=== PATIENT | female | born 1950 | race Caucasian/White ===

== ENCOUNTER 2020-05-15 22:02 | Emergency (ER) | payer MEDICARE, OTHER ==
[~2020-05-15] VITALS: Ht 165.1 cm; Wt 81.6 kg
[~2020-05-15 22:02] MED LIST: AMBIEN10 MG PO; ARMOUR THYROID120 MG PO; ESTRADIOL1 MG PO; OMEPRAZOLE40 MG PO; PREGNENOLONE; PROGESTERONE200 MG PO; TESTOSTERONE5 GM
[2020-05-15 22:32] LABS: ALANINE AMINOTRANSFERASE 8 IU/L (0-55); ALBUMIN/GLOBULIN RATIO 0.7 (0.8-2.0); ALKALINE PHOSPHATASE 125 IU/L (40-150); ANION GAP 15.4 mmol/L (8-16); BLOOD UREA NITROGEN 14 mg/dL (7-26); BUN/CREATININE RATIO 19 (6-25); CALCIUM 8.4 mg/dL (8.4-10.2); CARBON DIOXIDE 21 mmol/L (22-29); CHLORIDE 105 mmol/L (98-107); CREATININE, SERUM 0.72 mg/dL (0.57-1.11); EST GLOMERULAR FILTRATION RATE > 60 ML/MIN (60-); GLUCOSE 113 mg/dL (74-118); POTASSIUM 3.4 mmol/L (3.5-5.1); SODIUM 138 mmol/L (136-145)
[2020-05-15 22:35] LABS: BASOPHILS # (AUTO) 0.1 (0.0-0.1); BASOPHILS % 0.5 % (0.0-1.0); EOSINOPHILS # (AUTO) 0.1 (0.0-0.4); EOSINOPHILS % 0.5 % (0.0-6.0); HEMATOCRIT 36.8 % (34.2-44.1); HEMOGLOBIN 11.8 g/dL (12.0-16.0); LYMPHOCYTES % 11.5 % (18.0-39.1); MEAN CORPUSCULAR HEMOGLOBIN 30.1 pg (28-32); MEAN CORPUSCULAR HGB CONC 32.1 g/dL (31-35); MEAN CORPUSCULAR VOLUME 93.9 fL (81-99); MONOCYTES # (AUTO) 1.1 (0.2-0.8); MONOCYTES % 6.2 % (4.4-11.3); NEUTROPHILS # (AUTO) 13.5 (2.1-6.9); NEUTROPHILS % 79.8 % (38.7-80.0); PLATELET COUNT 230 x10e3/uL (140-360); RED BLOOD COUNT 3.92 x10e6/uL (3.6-5.1); RED CELL DISTRIBUTION WIDTH 13.7 % (11.7-14.4)
[2020-05-15] MEDS ORDERED: IOPAMIDOL 370 MG/ML 200 ML INFUS..BTL INJ ONE (23:23)
[2020-05-15] MEDS ORDERED: SODIUM CHLORIDE 0.9% 50ML 50 ML ONE (23:23)
[2020-05-16] MEDS ORDERED: HEPARIN SOD (PORCINE) 5,000 UNIT/ML VIAL IV ONE (00:15)
[2020-05-16] MEDS ORDERED: HEPARIN 25,000 UNIT 1,200 UNIT in DEXTROSE 5% 250ML 250 ML IV SCH (00:15)
[2020-05-16] MEDS ORDERED: MORPHINE SULFATE INJ 2 MG/ML SYR IV PRN (00:30)
[2020-05-16] MEDS ORDERED: HEPARIN 25,000 UNIT DRIP IV ONE (00:38)
[2020-05-16] MEDS ORDERED: HEPARIN SOD (PORCINE) 1000 UNIT/ML SDV IV ONE (00:45)
[2020-05-16] MEDS ORDERED: CEFTRIAXONE SOD 1 GM/NS 50 ML 50 ML IV ONE (00:45)
[2020-05-16] MEDS: HEPARIN 25,000 UNIT/D5W 250ML 250 ML IV SCH ×2 (01:04→14:58)
[2020-05-16] MEDS ORDERED: ZOLPIDEM TARTRATE 10 MG TAB PO PRN (04:30)
[2020-05-16] MEDS ORDERED: CEFEPIME 1GM/NS 0.9% 50 ML 50 ML IV SCH (04:30)
[2020-05-16] MEDS: MORPHINE SULFATE INJ 2 MG/ML SYR IV PRN ×3 (06:03→11:54)
[2020-05-16] MEDS: ONDANSETRON HCL INJ 2MG/ML 2ML 2 MG/ML VIAL IV PRN ×2 (06:03→12:30)
[2020-05-16] MEDS ORDERED: CELECOXIB 100 MG CAP PO SCH (08:45)
[2020-05-16] MEDS ORDERED: PANTOPRAZOLE SOD 40 MG TABEC PO SCH (09:00)
[2020-05-16] MEDS ORDERED: PROMETHAZINE 12.5MG/ NACL 0.9% 12.5 MG/50 ML BAG IV ONE (13:30)
[2020-05-16] MEDS ORDERED: MELATONIN 5 MG TABLET PO SCH (21:00)
== END 2020-05-16 16:19 | disposition home or self-care (01) ==
LOC: ER 22:09 → UNDOADMIN 05-16 01:40 → ERHOLD 05-16 01:40
DX: I26.99 Other pulmonary embolism without acute cor pulmonale (principal); I82.412 Acute embolism and thrombosis of left femoral vein; I82.431 Acute embolism and thrombosis of right popliteal vein; I82.432 Acute embolism and thrombosis of left popliteal vein; I82.441 Acute embolism and thrombosis of right tibial vein; I82.442 Acute embolism and thrombosis of left tibial vein; I10 Essential (primary) hypertension; F41.9 Anxiety disorder, unspecified; K21.9 Gastro-esophageal reflux disease without esophagitis; Z11.52 Encounter for screening for COVID-19; I25.2 Old myocardial infarction; Z95.5 Presence of coronary angioplasty implant and graft
CPT/HCPCS: 36415 ×2; 36569; 36600; 71045; 71260; 80053; 83605; 83880; 84484 ×2; 85025; 85730; 87040; 93005; 93306; 93970; 99285; J0692; J0696; J1644; J2270; J2405; Q9967; S0164; U0002

== ENCOUNTER 2021-05-02 06:55 | Emergency (ER) | payer MEDICARE, OTHER ==
[~2021-05-02] VITALS: Ht 165.1 cm; Wt 81.6 kg
[2021-05-02] MEDS ORDERED: ACETAMINOPHEN 325 MG TAB PO ONE (07:15)
[2021-05-02 08:30] VITALS: BP 145/69
== END 2021-05-02 08:33 | disposition home or self-care (01) ==
LOC: ER 07:05
DX: S00.83XA Contusion of other part of head, initial encounter (principal); S80.02XA Contusion of left knee, initial encounter; W01.0XXA Fall on same level from slipping, tripping and stumbling without subsequent striking against object, initial encounter; Z79.02 Long term (current) use of antithrombotics/antiplatelets
CPT/HCPCS: 70450; 70486; 72125; 99283